=== PATIENT | male | born 1990 | race Caucasian/White ===

== ENCOUNTER 2021-08-27 14:30 | Emergency (ER) | payer SELFPAY ==
[~2021-08-27] VITALS: Ht 170.2 cm; Wt 61.4 kg
[2021-08-27] MEDS ORDERED: IV NORMAL SALINE 1000ML BAG 1,000 ML IV ONE (16:15)
[2021-08-27] MEDS ORDERED: MORPHINE SULFATE 4 MG/ML INJ. IVP ONE (16:15)
[2021-08-27] MEDS ORDERED: KETOROLAC 15 MG/ML VIAL. IVP ONE (16:15)
--- NOTE | 2021-08-27 16:22 | PHYS DOC ---
General Adult EDM: Chief Complaint: TESTICULAR PAIN OR INJURY HPI: HPI: 31-year-old male who denies any significant past medical history, presents the ED with complaints of right-sided pelvic pain and right tender scrotal swelling that started yesterday. Associated hematuria. Reports unprotected intercourse approximately 2 weeks ago, female partners asymptomatic. No history of sexually transmitted diseases. Takes no routinely prescribed medications. Allergic to penicillin. Denies any genital trauma, ulcers, lesions or skin abrasions. (YRIS RANDLE DO) Review of Systems: Review of Systems: Constitutional: Denies fever or chills. [] Eyes: Denies change in visual acuity. [] HENT: Denies nasal congestion or sore throat. [] Respiratory: Denies cough or shortness of breath. [] Cardiovascular: Denies chest pain or edema. [] GI: Denies abdominal pain, nausea, vomiting, bloody stools or diarrhea. [] : Denies dysuria or urethral discharge Musculoskeletal: Denies back pain or joint pain. [] Integument: Denies rash or diaphoresis Neurologic: Denies headache, focal weakness or sensory changes. [] Endocrine: Denies polyuria or polydipsia. [] Lymphatic: Denies swollen glands. [] Psychiatric: Denies depression or anxiety. [] (YRIS RANDLE DO) Heart Score: C/O Chest Pain: No Risk Factors: Risk Factors: DM, Current or recent (<one month) smoker, HTN, HLP, family history of CAD, obesity. Risk Scores: Score 0 - 3: 2.5% MACE over next 6 weeks - Discharge Home Score 4 - 6: 20.3% MACE over next 6 weeks - Admit for Clinical Observation Score 7 - 10: 72.7% MACE over next 6 weeks - Early Invasive Strategies (YRIS RANDLE DO) Physical Exam: PE: Constitutional: Well developed, well nourished, no acute distress, non-toxic appearance. HENT: Normocephalic, atraumatic, Eyes: EOMI, conjunctiva normal, no discharge. Neck: Normal range of motion, supple, Cardiovascular: S1/2 present, regular rhythm Lungs & Thorax: Speaking in full sentences, bilateral equal chest rise, no tachypnea or increased work of breathing Abdomen: soft, no tenderness, Skin: Warm, dry, no erythema, no rash. [] Extremities: No tenderness, no cyanosis, no lower extremity edema Neurologic: Alert and oriented X 3, normal motor function, normal sensory function, no focal deficits noted. [] Psychologic: Affect normal, judgement normal, mood normal. [] : chaperoned by male medic, circumcised, no urethral discharge, right inguinal lymphadenopathy-no gross sign, very swollen tender and erythematous right scrotum, left scrotum unremarkable with no tenderness, no perennial rash or rash involving the shaft of the penis (YRIS RANDLE DO) EKG: EKG: [] (YRIS RANDLE DO) Radiology/Procedures: Radiology/Procedures: [] (YRIS RANDLE DO) Radiology/Procedures: IMAGING REPORT Signed PATIENT: MICHAEL FLORESOUNT: [id number] : 1990 LOCATION: ER AGE: 31 SEX: M EXAM STATUS: REG ER ORD. PHYSICIAN: YRIS RANDLE DO REASON: right scrotal sac celulitis, r/o nec fasc PROCEDURE: CT ABD PELV W/ IV CONTRST ONLY EXAMINATION: CT ABDOMEN+PELVIS W CLINICAL HISTORY: Right scrotal cellulitis, r/o nec fasc TECHNIQUE: CT of the abdomen and pelvis was performed using standard technique, scanning from just above the dome of the diaphragm to the symphysis pubis following administration of intravenous contrast. CT Dose Reduction Employed: One or more of the following individualized dose reduction techniques were utilized for this examination: 1. Automated exposure control 2. Adjustment of the mA and/or kV according to patient size 3. Use of iterative reconstruction technique. COMPARISON: None FINDINGS: Visualized heart and lungs unremarkable. Subcentimeter hypoenhancing focus in the posterior right hepatic lobe, too small adequately characterize. Gallbladder, pancreas, spleen, adrenal glands, and kidneys unremarkable. Mildly filled urinary bladder. No pelvic free fluid. No bowel dilation or definite wall thickening. Partially visualized nondilated appendix. No abdominal aortic or iliac artery aneurysm. Partially visualized scrotal edema, compatible with history of reported cellulitis. No subcutaneous emphysema. Small patches of subchondral sclerosis in the right greater than left femoral heads, suspicious for avascular necrosis. No articular surface collapse. IMPRESSION: No evidence of acute abdominopelvic abnormality. Partially visualized scrotal edema, compatible with reported history of cellulitis. No subcutaneous emphysema. Findings highly suspicious for avascular necrosis in the bilateral femoral heads. Correlate clinically and consider nonemergent/outpatient MRI of the pelvis without intravenous contrast for further evaluation as indicated. Electronically signed by: Umang Mayes DO (08/27/2021 6:17 PM) [facility] DICTATED and SIGNED BY: UMANG MAYES DO DATE: 08/27/[id number] 0 IMAGING REPORT Signed PATIENT: MICHAEL FLORESCCOUNT: [id number] : 1990 LOCATION: ER AGE: 31 SEX: M EXAM STATUS: REG ER ORD. PHYSICIAN: YRIS RANDLE DO REASON: pain/ ATTEMPTED ONCE, TOLD TO WAIT UNTIL MEDS KICK IN THEN COME PROCEDURE: TESTICULAR/SCROTUM CLINICAL HISTORY: Scrotal pain. COMPARISON: None available. TECHNIQUE: Ultrasound images of the scrotum was performed with mcneal-scale and color doppler. FINDINGS: The right testis measures 4.5 x 2.9 x 2.5 cm. The left testis measures 4.1 x 2.9 x 2.0 cm. There is no intratesticular abnormality. Testicular vascularity is symmetric and within normal limits. The epididymis is normal in appearance bilaterally. Moderate amount of right complex hydrocele with internal septations. IMPRESSION: 1. No acute sonographic scrotal findings. 2. Moderate amount of right complex hydrocele. Electronically signed by: Sonali Gomez MD (08/27/2021 7:38 PM) [facility] DICTATED and SIGNED BY: SONALI GOMEZ MD DATE: 08/27/[id number] 0 (NASEEM MONTE DO) Course & Med Decision Making: Course & Med Decision Making Pertinent Labs and Imaging studies reviewed. (See chart for details) Concern for edematous right scrotum with cellulitis that does not appear to involve the shaft of the penis or skin of the perineum. Patient with leukocytosis, neutrophil predominant, bands not yet reported. Started on Vanco and Rocephin. No hyponatremia to indicate necrotizing fasciitis but this is still in the differential. CT imaging results pending. Testicular ultrasound pending. Blood cultures and lactic acid have been ordered. Due to shift change patient was signed out to oncoming physician Dr. Monte for further medical evaluation and disposition. (YRIS RANDLE DO) Course & Med Decision Making This patient was initially seen by Dr. Randle. Please see her note for further details of HPI. I assumed care at 1800 tonight. The patient is being treated for scrotal cellulitis. He was given IV Rocephin and IV vancomycin. He tolerated these medications well. He is resting comfortably currently. He reports improvement of pain. No abscess is noted on ultrasound. I did explain the CT findings as well, and he reports that he does not have any specific or severe hip pain, he reports previous experience. I did explain the presence of AVM of the hips, and I recommend he follow-up with a primary care physician for possible nonemergent outpatient MRI in the future. He is comfortable with the plan for discharge home. He is given strict return precautions. He lives in [place] most of the time, but he does also stay here in [facility]. I gave him information to establish primary care here in [facility]. He verbalizes understanding of the plan of care, verbalized understanding of instructions provided. (NASEEM MONTE DO) Dragon Disclaimer: Slick Disclaimer: This electronic medical record was generated, in whole or in part, using a voice recognition dictation system. (YRIS RANDLE DO) Departure Departure Impression: Primary Impression: Cellulitis, scrotum Disposition: HOME / SELF CARE / HOMELESS Condition: STABLE Referrals: NON,STAFF (PCP) Patient Instructions: Cellulitis Additional Instructions: Take the full course of antibiotics as directed until gone. Use the pain medicine and nausea medicine as needed. Return to the ER for more severe redness, more severe pain, if you develop severe abdominal pain, vomiting, dehydration, increase in size, redness, swelling of your scrotum or for any other concerns. Please establish care with a primary care physician for follow- up. Also, you do have evidence of decreased blood flow to your hip joints on CT, and if you develop any severe hip pain, you may need to see an orthopedic surgeon and have an outpatient MRI, in the future. Scripts Doxycycline Hyclate (DOXYCYCLINE HYCLATE) 100 Mg Tablet 1 TAB PO BID for 10 Days, #20 TAB Prov: NASEEM MONTE DO 08/27/21 Ondansetron Hcl (ZOFRAN) 4 Mg Tablet 4 MG PO PRN TID PRN for VOMITING, #20 TAB nausea/vomiting Prov: NASEEM MONTE DO 08/27/21 Hydrocodone Bit/Acetaminophen (HYDROCODONE-APAP 5-325 ) 1 Tab Tablet 1 TAB PO PRN Q6HRS PRN for PAIN, #20 TAB 0 Refills Prov: MELLNASEEM Zeeshan DO 08/27/21 YRIS RANDLE DO Aug 27, 2021 16:22 NASEEM MONTE Zeeshan DO Aug 27, 2021 18:40
[2021-08-27 16:50] LABS: BASO # 0.1 x10^3/uL (0.0-0.2); BASO % 1 % (0-3); EOS # 0.2 x10^3/uL (0.0-0.7); EOS % 1 % (0-3); HEMATOCRIT 37.3 % (39.0-53.0); HEMOGLOBIN 12.8 g/dL (13.0-17.5); LYMPH # 0.8 x10^3/uL (1.0-4.8); LYMPH % 5 % (24-48); MEAN CORPUSCULAR HEMOGLOBIN 32 pg (25-35); MEAN CORPUSCULAR HGB CONC 34 g/dL (31-37); MEAN CORPUSCULAR VOLUME 92 fL (79-100); MONO % 6 % (0-9); NEUT # 15.4 x10^3/uL (1.8-7.7); NEUT % 88 % (31-73); PLATELET COUNT 392 x10^3/uL (140-400); RED BLOOD COUNT 4.06 x10^6/uL (4.30-5.70); RED CELL DISTRIBUTION WIDTH 12.2 % (11.5-14.5); WHITE BLOOD COUNT 17.5 x10^3/uL (4.0-11.0)
[2021-08-27] MEDS ORDERED: CONTRAST GIVEN. MC PRN (17:00)
[2021-08-27] MEDS ORDERED: IOHEXOL 300 MG/ML 100ML VIAL. IV ONE (17:00)
[2021-08-27 17:01] LABS: CALCIUM 9.6 mg/dL (8.5-10.1); CREATININE 0.7 mg/dL (0.7-1.3); GFR 130.7; POTASSIUM 4.3 mmol/L (3.5-5.1)
[2021-08-27 17:11] LABS: ALBUMIN/GLOBULIN RATIO 1.3 (1.0-1.7); TOTAL BILIRUBIN 0.4 mg/dL (0.2-1.0)
[2021-08-27] MEDS ORDERED: cefTRIAXone IV Push 1 GM VIAL. IVP ONE (17:45)
[2021-08-27] MEDS ORDERED: VANCOMYCIN PER PHARMACY MC PRN (17:45)
[2021-08-27] MEDS ORDERED: VANCOMYCIN 1.5 GM in IV NORMAL SALINE 500ML BAG 500 ML IV ONE (18:00)
--- NOTE | 2021-08-27 18:19 | RAD ---
EXAMINATION: CT ABDOMEN+PELVIS W CLINICAL HISTORY: Right scrotal cellulitis, r/o nec fasc TECHNIQUE: CT of the abdomen and pelvis was performed using standard technique, scanning from just ab ove the dome of the diaphragm to the symphysis pubis following administration of intravenous contrast . CT Dose Reduction Employed: One or more of the following individualized dose reduction techniques wer e utilized for this examination: 1. Automated exposure control 2. Adjustment of the mA and/or kV ac cording to patient size 3. Use of iterative reconstruction technique. COMPARISON: None FINDINGS: Visualized heart and lungs unremarkable. Subcentimeter hypoenhancing focus in the posterior right hepatic lobe, too small adequately character ize. Gallbladder, pancreas, spleen, adrenal glands, and kidneys unremarkable. Mildly filled urinary bladder. No pelvic free fluid. No bowel dilation or definite wall thickening. Partially visualized nondilated appendix. No abdominal aortic or iliac artery aneurysm. Partially visualized scrotal edema, compatible with history of reported cellulitis. No subcutaneous e mphysema. Small patches of subchondral sclerosis in the right greater than left femoral heads, suspicious for a vascular necrosis. No articular surface collapse. IMPRESSION: No evidence of acute abdominopelvic abnormality. Partially visualized scrotal edema, compatible with reported history of cellulitis. No subcutaneous e mphysema. Findings highly suspicious for avascular necrosis in the bilateral femoral heads. Correlate clinicall y and consider nonemergent/outpatient MRI of the pelvis without intravenous contrast for further eval uation as indicated. Electronically signed by: Umang Chowdhury DO (08/27/2021 6:17 PM) [facility]
[2021-08-27 18:57] LABS: % BANDS 12 % (0-9); % LYMPHS 1 % (24-48); % MONOS 5 % (0-10); % SEGS 82 % (35-66); PLT ESTIMATE ADEQUATE (ADEQUATE)
[2021-08-27 19:37] LABS: BILIRUBIN,URINE NEGATIVE (NEG); CLARITY,URINE CLEAR; COLOR,URINE YELLOW; NITRITE,URINE NEGATIVE (NEG); PH,URINE 6.5 (<5.0-8.0); PROTEIN,URINE NEGATIVE (NEG-TRACE); UROBILINOGEN,URINE 0.2 mg/dL (0.2 mg/dL)
--- NOTE | 2021-08-27 19:41 | RAD ---
CLINICAL HISTORY: Scrotal pain. COMPARISON: None available. TECHNIQUE: Ultrasound images of the scrotum was performed with mcneal-scale and color doppler. FINDINGS: The right testis measures 4.5 x 2.9 x 2.5 cm. The left testis measures 4.1 x 2.9 x 2.0 cm. There is no intratesticular abnormality. Testicular vascularity is symmetric and within normal limits . The epididymis is normal in appearance bilaterally. Moderate amount of right complex hydrocele with internal septations. IMPRESSION: 1. No acute sonographic scrotal findings. 2. Moderate amount of right complex hydrocele. Electronically signed by: Maldonado Gomez MD (08/27/2021 7:38 PM) [facility]
[2021-08-27 19:49] LABS: BACTERIA,URINE FEW /HPF (0-FEW)
[2021-08-27 21:35] VITALS: BP 114/63
[2021-08-27] MEDS ORDERED: DOXY100T PO (22:02)
[2021-08-27] MEDS ORDERED: HYDR-2761 PO (22:02)
[2021-08-27] MEDS ORDERED: ONDA4TAB7 PO (22:02)
== END 2021-08-27 22:50 | disposition home or self-care (01) ==
LOC: ER 14:30
DX: N49.2 Inflammatory disorders of scrotum (principal)
CPT/HCPCS: 36415; 74177; 76870; 80053; 81001; 83605; 85007; 85025; 87086; 87491; 87591; 96361; 96365; 96366; 96375; 99285; J0696; J1885; J2270; J3370; J7030; J7040; Q9967